=== PATIENT | female | born 1995 | race Caucasian/White ===

== ENCOUNTER 2022-01-18 16:43 | Inpatient (IN) | payer OTHER, SELFPAY ==
[2022-01-18 16:48] VITALS: BP 121/85; PULSE 75; RESP 20; TEMP 35.8; O2SAT 98; BMI 31.8
--- NOTE | 2022-01-18 17:08 | ED.PSYCH ---
HPI - Psych General Chief Complaint: Psychiatric Symptoms Stated Complaint: multiple complaints, OD? Time Seen by Provider: 01/18/22 16:54 Source: patient Mode of arrival: ambulatory Limitations: no limitations History of Present Illness HPI Narrative: 26-year-old female history of anxiety and depression presenting to the emergency department for crisis evaluation. Presents with her aunt who she is close, patient reports she is here because she has been hallucinating and her boyfriend is concerned. She also reports that she has not been taking all her medications as prescribed. According to aunt patient has been destructive in her home, throwing things, making a mess. Patient tells me that she is ?relapsing and is starting to see and hear things again, she tells me she is having command auditory hallucinations and she is seeing figures however unable to tell me exactly what she is seeing. She tells me it feels ?weird ?. She tells me she just does not feel right. Upon history taking patient speaking rapidly, do railing from conversation, very euphoric. Denies SI, HI. Denies tactile hallucinations. Denies medical complaints. Tells me she has had psychiatric admissions in the past however unable to tell me why. Related Data Home Medications Medication Instructions Recorded Confirmed bupropion HCl 75 mg tablet 75 mg PO BID 01/18/22 01/18/22 hydroxyzine pamoate 50 mg capsule 50 mg PO TID PRN Anxiety 01/18/22 01/18/22 methimazole 1.5 tab PO DAILY 01/18/22 01/18/22 naltrexone 50 mg tablet 50 mg PO DAILY 01/18/22 01/18/22 sertraline 50 mg tablet 50 mg PO DAILY 01/18/22 01/18/22 topiramate 50 mg tablet 50 mg PO BID 01/18/22 01/18/22 Allergies Allergy/AdvReac Type Severity Reaction Status Date / Time No Known Allergies Allergy Unverified 11/13/19 16:17 Review of Systems Review of Systems: Constitutional : No Weight loss, No Fever, No Chills, No Fatigue, No Malaise ENT/Mouth : No sore throat, No Rhinorrhea Eyes: No Eye Pain, No Swelling, No Redness Cardiovascular : No Chest Pain, No SOB, No Dyspnea on Exertion, No Orthopnea, No Edema, No Palpitations Respiratory : No Cough, No Sputum, No Wheezing Gastrointestinal : No Nausea, No Vomiting, No Diarrhea, No Constipation, No abdominal Pain, No Hematochezia, No Melena Genitourinary : No Dysuria, No Urinary Frequency, No Hematuria, Musculoskeletal : No joint pain, No Myalgias, No Joint Swelling Skin : No Skin Lesions, No rash Neuro : No Weakness, No Numbness, No Dizziness, No Headache Psych : + Anxiety/Panic, + Depression, No SI/HI All other systems reviewed and are negative Yes all other systems are reviewed and are negative [facility] Past Medical History Attestation statement: The following information was validated with the patient. Source: old records reviewed and nursing notes reviewed Social History Social History Advance Directives: No Physical Exam Vital Signs: Vital Signs: Last Vital Signs Temp 96.5 F L 01/18/22 16:48 Pulse 75 01/18/22 16:48 Resp 20 01/18/22 16:48 BP 121/85 01/18/22 16:48 Pulse Ox 98 01/18/22 16:48 O2 Del Method 01/18/22 16:48 BMI result Body Mass Index 31.8 Stable vitals Appearance: Alert.? Oriented X3.? No acute distress.? Head: Normocephalic, atraumatic, no step-offs or deformities Eyes: Pupils equal, round and reactive to light.? CVS: Normal heart rate and rhythm.? Pulses normal.? Respiratory: No respiratory distress.? Breath sounds normal.? Abdomen: Soft and nontender.? Skin: Skin warm and dry.? Normal skin color.? Normal skin turgor.? Extremities: No lower extremity edema.? No calf ttp. 5/5 strength to bilateral upper and lower extremities Neuro: Oriented X 3.? No motor deficit.? No sensory deficit. CN 2-12 intact Course Reevaluation(s) Reevaluation #1: CBC with leukocytosis likely reactive unlikely from infection. Chemistry with no acute electrolyte abnormalities requiring intervention. Toxicology negative. Salicylates, acetaminophen and ethanol negative. Urine clean without infection. COVID negative. Patient extremely manic at this time will give low-dose Zyprexa by mouth. At this time patient will be placed in physician observation to allow more time to be evaluated by the behavioral health team. At time observation was started patient common cooperative no acute distress will continue to monitor. Stable vitals. Time: 18:54 MDM - Psych MDM Narrative Medical decision making narrative: 1700 26-year-old female presents with want requesting crisis evaluation, reporting visual and auditory command hallucinations, non med compliance. Euphoric, rapidly speaking, derailing from conversation upon exam. Physical examination benign. Plan medical clearance and evaluation by the behavioral health team. Due to patient's irrational behavior, unorganized thoughts, dangerous behavior at home patient is harm to self and others will place on Section 12 Medical Records Attestation: I reviewed the patient's medical records. Lab Data Attestation: I reviewed the patient's lab results. Result diagrams: 01/18/22 17:50 01/18/22 17:50 Labs: Lab Results 01/18/22 01/18/22 01/18/22 Range/Units 17:45 17:46 17:46 WBC (4.8-10.8) X10*3/uL RBC (4.20-5.50) X10*6/uL Hgb (12.0-16.0) g/dl Hct (37.0-47.0) % MCV (80.0-98.0) fL MCH (27.0-33.0) pg MCHC (31.0-35.0) g/dl RDW (11.0-16.0) % Plt Count (160-400) X10*3/uL MPV (9.4-12.3) fL Immature Gran % (Auto) (0.0-0.4) % Neut % (Auto) (45-73) % Lymph % (Auto) (20-40) % [place] % (Auto) (2-11) % Eos % (Auto) (0-4) % Baso % (Auto) (0-2) % Lymph # (Auto) (1.2-4.9) X10*3/uL [place] # (Auto) (0.1-1.2) X10*3/uL Eos # (Auto) (0.0-0.4) X10*3/uL Baso # (Auto) (0.0-0.2) X10*3/uL Abs Immat Gran (auto) (0.00-0.03) X10*3/uL Absolute Neuts (auto) (2.0-8.3) x10*3/uL Absolute Nucleated RBC (0.0-0.012) X10*3/uL Nucleated RBC % (auto) (0.0-0.2) /100WBC Sodium (135-145) mmol/L Potassium (3.3-5.1) mmol/L Chloride (96-108) mmol/L Carbon Dioxide (22-29) mmol/L Anion Gap (12-20) BUN (9-16) mg/dL Creatinine (0.5-1.4) mg/dL Estim Creat Clear Calc Estimated GFR Random Glucose (60-115) mg/dL Calcium (8.4-10.2) mg/dL Magnesium (1.6-2.6) mg/dL Total Bilirubin (0.0-1.0) mg/dL AST (5-31) U/L ALT (0-31) U/L Alkaline Phosphatase (39-117) U/L Total Protein (6.5-8.0) g/dL Albumin (3.5-5.0) g/dL Urine Color Yellow Urine Appearance Cloudy Urine pH 7.5 (5.0-9.0) Ur Specific [place] 1.015 (1.005-1.025) Urine Protein Negative (Neg-Trace) mg/dL Urine Glucose (UA) Negative (Negative) mg/dL Urine Ketones Negative (Negative) mg/dL Urine Blood Negative (Negative) Urine Nitrite Negative (Negative) Ur Leukocyte Esterase Trace H (Negative) Urine RBC 0-2 (0-2) /HPF Urine WBC 0-5 (0-5) /HPF Ur Squamous Epith Cells 3-5 (0-2) /HPF Urine Bacteria Trace (None Seen) Hyaline Casts 0-2 (0-2) /LPF Salicylates (15-30) mg/dL Urine Opiates Screen Not Detected (Not Detect) Urine Fentanyl Screen Not Detected (Not Detect) Acetaminophen (<30) mcg/mL Ur Barbiturates Screen Not Detected (Not Detect) Ur Phencyclidine Scrn Not Detected (Not Detect) Ur Amphetamines Screen Not Detected (Not Detect) U Benzodiazepines Scrn Not Detected (Not Detect) Urine Cocaine Screen Not Detected (Not Detect) U Marijuana (THC) Screen Not Detected (Not Detect) Ethyl Alcohol mg/dL COVID-19 (NASIR) Negative (Negative) COVID-19 Clin Com See Note 01/18/22 01/18/22 01/18/22 Range/Units 17:50 17:50 17:50 WBC 11.3 H (4.8-10.8) X10*3/uL RBC 5.14 (4.20-5.50) X10*6/uL Hgb 14.2 (12.0-16.0) g/dl Hct 42.8 (37.0-47.0) % MCV 83.3 (80.0-98.0) fL MCH 27.6 (27.0-33.0) pg MCHC 33.2 (31.0-35.0) g/dl RDW 13.7 (11.0-16.0) % Plt Count 347 (160-400) X10*3/uL MPV 10.4 (9.4-12.3) fL Immature Gran % (Auto) 0.9 H (0.0-0.4) % Neut % (Auto) 69.0 (45-73) % Lymph % (Auto) 24.0 (20-40) % [place] % (Auto) 5.6 (2-11) % Eos % (Auto) 0.1 (0-4) % Baso % (Auto) 0.4 (0-2) % Lymph # (Auto) 2.7 (1.2-4.9) X10*3/uL [place] # (Auto) 0.6 (0.1-1.2) X10*3/uL Eos # (Auto) 0.0 (0.0-0.4) X10*3/uL Baso # (Auto) 0.1 (0.0-0.2) X10*3/uL Abs Immat Gran (auto) 0.10 H (0.00-0.03) X10*3/uL Absolute Neuts (auto) 7.8 (2.0-8.3) x10*3/uL Absolute Nucleated RBC 0.000 (0.0-0.012) X10*3/uL Nucleated RBC % (auto) 0.0 (0.0-0.2) /100WBC Sodium 138 (135-145) mmol/L Potassium 3.8 (3.3-5.1) mmol/L Chloride 108 (96-108) mmol/L Carbon Dioxide 20 L (22-29) mmol/L Anion Gap 14 (12-20) BUN 10 (9-16) mg/dL Creatinine 0.75 (0.5-1.4) mg/dL Estim Creat Clear Calc 96.2 Estimated GFR > 60 Random Glucose 72 (60-115) mg/dL Calcium 9.7 (8.4-10.2) mg/dL Magnesium 2.1 (1.6-2.6) mg/dL Total Bilirubin 0.3 (0.0-1.0) mg/dL AST 16 (5-31) U/L ALT 13 (0-31) U/L Alkaline Phosphatase 115 (39-117) U/L Total Protein 8.4 H (6.5-8.0) g/dL Albumin 4.6 (3.5-5.0) g/dL Urine Color Urine Appearance Urine pH (5.0-9.0) Ur Specific [place] (1.005-1.025) Urine Protein (Neg-Trace) mg/dL Urine Glucose (UA) (Negative) mg/dL Urine Ketones (Negative) mg/dL Urine Blood (Negative) Urine Nitrite (Negative) Ur Leukocyte Esterase (Negative) Urine RBC (0-2) /HPF Urine WBC (0-5) /HPF Ur Squamous Epith Cells (0-2) /HPF Urine Bacteria (None Seen) Hyaline Casts (0-2) /LPF Salicylates < 5.0 L (15-30) mg/dL Urine Opiates Screen (Not Detect) Urine Fentanyl Screen (Not Detect) Acetaminophen < 1 (<30) mcg/mL Ur Barbiturates Screen (Not Detect) Ur Phencyclidine Scrn (Not Detect) Ur Amphetamines Screen (Not Detect) U Benzodiazepines Scrn (Not Detect) Urine Cocaine Screen (Not Detect) U Marijuana (THC) Screen (Not Detect) Ethyl Alcohol < 10 mg/dL COVID-19 (NASIR) (Negative) COVID-19 Clin Com Critical Care Time Critical Care Time Critical Care Time: No Discharge Plan Discharge Clinical Impression: Acute psychosis Patient Disposition: Still a Patient Prescriptions: No Action bupropion HCl [Wellbutrin] 75 mg Tablet 75 mg PO BID naltrexone 50 mg Tablet 50 mg PO DAILY hydroxyzine pamoate 50 mg Capsule 50 mg PO TID PRN (Reason: Anxiety) sertraline 50 mg Tablet 50 mg PO DAILY topiramate 50 mg Tablet 50 mg PO BID methimazole 5 mg 1.5 tab PO DAILY
[2022-01-18 18:00] LABS: MANUAL DIFF FLAG NO
[2022-01-18 18:03] LABS: Appearance Urine Cloudy; Color Urine Yellow; Glucose Urine UA Negative (Negative); Leukocyte Esterase Urine Trace (Negative); Nitrite Urine Negative (Negative); PH 7.5 (5.0-9.0); Specific Gravity - Urine 1.015 (1.005-1.025); UMIC TRIGGER UACC YES; Urine Blood Negative (Negative); Urine Ketones Negative (Negative); Urine Protein Negative (Neg-Trace)
[2022-01-18 18:05] LABS: Bacteria Urine Trace (None Seen); Hyaline Casts Urine 0-2 /LPF (0-2); RBC Urine 0-2 /HPF (0-2); WBC Urine 0-5 /HPF (0-5)
[2022-01-18 18:08] LABS: Basophils Absolute Auto 0.1 X10*3/uL (0.0-0.2); Basophils Percent Auto 0.4 % (0-2); Eosinophils Percent Auto 0.1 % (0-4); Hematocrit 42.8 % (37.0-47.0); Hemoglobin 14.2 g/dl (12.0-16.0); Imm Gran Pct Auto 0.9 % (0.0-0.4); Lymphocytes Absolute Auto 2.7 X10*3/uL (1.2-4.9); Mean Corpuscular HGB Conc 33.2 g/dl (31.0-35.0); Mean Corpuscular Hemoglobin 27.6 pg (27.0-33.0); Mean Corpuscular Volume 83.3 fL (80.0-98.0); Mean Platelet Volume 10.4 fL (9.4-12.3); Monocytes Absolute Auto 0.6 X10*3/uL (0.1-1.2); Monocytes Percent Auto 5.6 % (2-11); Neutrophils Absolute Auto 7.8 x10*3/uL (2.0-8.3); Platelet Count 347 X10*3/uL (160-400); Red Blood Count 5.14 X10*6/uL (4.20-5.50); Red Cell Distribution Width 13.7 % (11.0-16.0); White Blood Count 11.3 X10*3/uL (4.8-10.8)
[2022-01-18 18:13] LABS: Amphetamine Screen Urine Not Detected (Not Detect); Barbiturates, Urine Not Detected (Not Detect); Benzodiazepines Screen Urine Not Detected (Not Detect); Cannabinoid Screen Urine Not Detected (Not Detect); Cocaine Screen Urine Not Detected (Not Detect); Fentanyl, urine Not Detected (Not Detect); Opiate Screen Urine Not Detected (Not Detect); Phencyclidine Screen Urine Not Detected (Not Detect)
[2022-01-18 18:14] LABS: COVID-19 Test Negative (Negative); IDNOW Serial# 9DB6401D
[2022-01-18 18:19] LABS: Acetaminophen LAB < 1 mcg/mL (<30); Salicylate < 5.0 mg/dL (15-30)
[2022-01-18 18:21] LABS: Alanine Aminotransferase 13 U/L (0-31); Albumin Level 4.6 g/dL (3.5-5.0); Alkaline Phosphatase 115 U/L (39-117); Anion Gap 14 (12-20); Aspartate Amino Transferase 16 U/L (5-31); Bilirubin Total 0.3 mg/dL (0.0-1.0); Blood Urea Nitrogen 10 mg/dL (9-16); Calcium 9.7 mg/dL (8.4-10.2); Carbon Dioxide 20 mmol/L (22-29); Chloride 108 mmol/L (96-108); Creatinine Clr Calc Pharmacy 96.2; Estimated Glomerular Filt Rate > 60; Ethanol < 10 mg/dL; Glucose Random 72 mg/dL (60-115); Magnesium 2.1 mg/dL (1.6-2.6); Potassium 3.8 mmol/L (3.3-5.1); Sodium 138 mmol/L (135-145); Total Protein 8.4 g/dL (6.5-8.0)
[2022-01-18] MEDS: OLANZapine 5 MG TABLET PO (18:55)
[2022-01-18] MEDS: Topiramate 25 MG TABLET 50 MG PO (20:10)
[2022-01-18] MEDS: LORazepam 1 MG TABLET PO (20:10)
[2022-01-18] MEDS: buPROPion HCL 75 MG TABLET PO (20:31)
[2022-01-19 01:16] VITALS: BP 117/77; PULSE 81; RESP 16; TEMP 35.9; O2SAT 100
--- NOTE | 2022-01-19 02:42 | PC.NURSE ---
Patient is a 26 year old bilingual cisgender female, arrived on the unit via wheelchair @approx 0100 [place] [facility]. Conditional Voluntary signed. Patient presented to the ER secondary to being evaluated by [facility] in community for increased paranoia and delusions, exhibiting signs of being manic; noncompliant with medications. Patient sleepy upon arrival to the unit, unable to fully participate in Admission Assessment d/t somnolence; remained cooperative, rapid rambling speech with verbal responses, anxious and paranoid affect, denies SI/HI. COVID negative; Tox Screen Negative. Nonsmoker. Patient refusing flu vaccine. Safety checks in place as ordered. Patient asleep in bed at this time.
[2022-01-19 08:30] VITALS: BP 115/72; PULSE 83; TEMP 36.2
[2022-01-19 08:53] LABS: Estimated Average Glucose 100 mg/dL; Hemoglobin A1c % 5.1 %
[2022-01-19] MEDS: Naltrexone HCl 50 MG TABLET PO (08:54)
[2022-01-19] MEDS: Topiramate 25 MG TABLET 50 MG PO ×2 (08:54→20:20)
[2022-01-19 09:23] LABS: Alanine Aminotransferase 15 U/L (0-31); Alkaline Phosphatase 104 U/L (39-117); Anion Gap 13 (12-20); Aspartate Amino Transferase 13 U/L (5-31); Bilirubin Total 0.4 mg/dL (0.0-1.0); Blood Urea Nitrogen 12 mg/dL (9-16); Calcium 9.2 mg/dL (8.4-10.2); Carbon Dioxide 20 mmol/L (22-29); Chloride 111 mmol/L (96-108); Cholesterol 134 mg/dL; Estimated Glomerular Filt Rate > 60; Free T4 (Free Thyroxine) 0.89 ng/dL (0.71-1.85); Glucose Fasting 89 mg/dL (60-99); HDL Cholesterol 39 mg/dL; LDL Cholesterol Calculated 69 mg/dl; Potassium 4.4 mmol/L (3.3-5.1); Sodium 140 mmol/L (135-145); Total Protein 7.5 g/dL (6.5-8.0); Triglycerides 131 mg/dL
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
[2022-01-19] MEDS: methIMAzole 5 MG TABLET 7.5 MG PO (13:00)
[2022-01-19 18:00] VITALS: BP 115/66; PULSE 97; TEMP 36.5; O2SAT 99
--- NOTE | 2022-01-19 21:18 | PC.NURSE ---
Patient signed a 3 Day on 01/19, witnessed and filed in chart. [employer] Provider alerted via [employer]. SW, UC and CC alerted via email. 3 Day up Wednesday 01/24.
--- NOTE | 2022-01-20 04:58 | PC.NURSE ---
Pt. awake all night. She is hyperverbal, pressured and disorganized. Her speech is pressured, regressed with flight of ideas and she frequently refers to herself in the third person.
[2022-01-20] MEDS: methIMAzole 5 MG TABLET 7.5 MG PO (09:29)
[2022-01-20] MEDS: Naltrexone HCl 50 MG TABLET PO (09:29)
[2022-01-20] MEDS: Topiramate 25 MG TABLET 50 MG PO ×2 (09:29→20:14)
--- NOTE | 2022-01-20 14:34 | HO.PSYCHPN ---
Subjective Subjective Date of Service: 01/20/22 Reason For Visit: Rivka Interim History: Hypomanic, disorganized, long discussion about bunnies, the bunny tattoo she has on her arm, the [employer] and missing Easter. TDN filed. Believes current sx are from contrave. Discussed hx of thyroid storm and MSE changes. Pt has rash on forearms, legs, hands for ~2 weeks, describes this as excema . Agreed to hydrocortisone cream. Discussed elevated TSH 6.8-agreed to increase Tapazole from 7.5 mg to 10 mg. Message left for [facility] endocrine MD Dr. Coker [phone] (closed today) to discuss. Discussed rivka, education provided. Will increase Olanzapine to 15 mg hs and add Depakote ER 500 mg because I cannot sleep . Pt reviewed all of her work experience and hours she has worked-relating this to the bunnies and Contrave. Medication Compliance: Yes Side effects from medications: No Attending Groups: Intermittent Review of Systems Acute medical concerns: No Medical Review of Systems: unchanged Mental Status Exam Mental Status Exam Patient Appearance: Fatigued Patient Orientation: Person and Place Level of Consciousness: Alert Patient Behavior: Talkative and Good Eye Contact Mood Description: Cheerful Affect Description: Cheerful Patient Cognition Impaired: Yes Ability to Follow Directions: Fair Speech Pattern: Spontaneous Speech, Rambling, Excessive and Pressured Memory Description: Remote Impaired Hallucinations: None (denies) Delusions: Grandiose and Present Perceptual Disturbances: Derealization Thought Process: Racing Thought Content: positive for Racing Abnormal Motor Activity Signs and Symptoms: Restlessness (wanting discharge today) Judgement: Poor Diagnostics Vital Signs (24Hr): Vital Signs - 24 hr 01/19/22 18:00 Temperature 97.7 F Pulse Rate 97 Blood Pressure 115/66 Pulse Oximetry 99 BMI result Body Mass Index 31.8 Labs Results: 01/18/22 17:50 01/19/22 07:30 Labs: Laboratory Results - last 48 hr 01/18/22 01/18/22 01/18/22 17:45 17:46 17:46 WBC RBC Hgb Hct MCV MCH MCHC RDW Plt Count MPV Immature Gran % (Auto) Neut % (Auto) Lymph % (Auto) Hutchinson % (Auto) Eos % (Auto) Baso % (Auto) Lymph # (Auto) [place] # (Auto) Eos # (Auto) Baso # (Auto) Abs Immat Gran (auto) Absolute Neuts (auto) Absolute Nucleated RBC Nucleated RBC % (auto) Sodium Potassium Chloride Carbon Dioxide Anion Gap BUN Creatinine Estim Creat Clear Calc Estimated GFR Random Glucose Fasting Glucose Estimat Average Glucose Hemoglobin A1c % Calcium Magnesium Total Bilirubin AST ALT Alkaline Phosphatase Total Protein Albumin Triglycerides Cholesterol LDL Cholesterol, Calc HDL Cholesterol TSH Free T4 Urine Color Yellow Urine Appearance Cloudy Urine pH 7.5 Ur Specific Gorman 1.015 Urine Protein Negative Urine Glucose (UA) Negative Urine Ketones Negative Urine Blood Negative Urine Nitrite Negative Ur Leukocyte Esterase Trace H Urine RBC 0-2 Urine WBC 0-5 Ur Squamous Epith Cells 3-5 Urine Bacteria Trace Hyaline Casts 0-2 Salicylates Urine Opiates Screen Not Detected Urine Fentanyl Screen Not Detected Acetaminophen Ur Barbiturates Screen Not Detected Ur Phencyclidine Scrn Not Detected Ur Amphetamines Screen Not Detected U Benzodiazepines Scrn Not Detected Urine Cocaine Screen Not Detected U Marijuana (THC) Screen Not Detected Ethyl Alcohol COVID-19 (NASIR) Negative COVID-19 Clin Com See Note 01/18/22 01/18/22 01/18/22 17:50 17:50 17:50 WBC 11.3 H RBC 5.14 Hgb 14.2 Hct 42.8 MCV 83.3 MCH 27.6 MCHC 33.2 RDW 13.7 Plt Count 347 MPV 10.4 Immature Gran % (Auto) 0.9 H Neut % (Auto) 69.0 Lymph % (Auto) 24.0 Hutchinson % (Auto) 5.6 Eos % (Auto) 0.1 Baso % (Auto) 0.4 Lymph # (Auto) 2.7 Hutchinson # (Auto) 0.6 Eos # (Auto) 0.0 Baso # (Auto) 0.1 Abs Immat Gran (auto) 0.10 H Absolute Neuts (auto) 7.8 Absolute Nucleated RBC 0.000 Nucleated RBC % (auto) 0.0 Sodium 138 Potassium 3.8 Chloride 108 Carbon Dioxide 20 L Anion Gap 14 BUN 10 Creatinine 0.75 Estim Creat Clear Calc 96.2 Estimated GFR > 60 Random Glucose 72 Fasting Glucose Estimat Average Glucose Hemoglobin A1c % Calcium 9.7 Magnesium 2.1 Total Bilirubin 0.3 AST 16 ALT 13 Alkaline Phosphatase 115 Total Protein 8.4 H Albumin 4.6 Triglycerides Cholesterol LDL Cholesterol, Calc HDL Cholesterol TSH 6.80 H Free T4 Urine Color Urine Appearance Urine pH Ur Specific Gorman Urine Protein Urine Glucose (UA) Urine Ketones Urine Blood Urine Nitrite Ur Leukocyte Esterase Urine RBC Urine WBC Ur Squamous Epith Cells Urine Bacteria Hyaline Casts Salicylates < 5.0 L Urine Opiates Screen Urine Fentanyl Screen Acetaminophen < 1 Ur Barbiturates Screen Ur Phencyclidine Scrn Ur Amphetamines Screen U Benzodiazepines Scrn Urine Cocaine Screen U Marijuana (THC) Screen Ethyl Alcohol < 10 COVID-19 ([facility]IR) COVID-19 [facility] Com 01/19/22 01/19/22 07:30 07:30 WBC RBC Hgb Hct MCV MCH MCHC RDW Plt Count MPV Immature Gran % (Auto) Neut % (Auto) Lymph % (Auto) Hutchinson % (Auto) Eos % (Auto) Baso % (Auto) Lymph # (Auto) Hutchinson # (Auto) Eos # (Auto) Baso # (Auto) Abs Immat Gran (auto) Absolute Neuts (auto) Absolute Nucleated RBC Nucleated RBC % (auto) Sodium 140 Potassium 4.4 Chloride 111 H Carbon Dioxide 20 L Anion Gap 13 BUN 12 Creatinine 0.87 Estim Creat Clear Calc 83.0 Estimated GFR > 60 Random Glucose Fasting Glucose 89 Estimat Average Glucose 100 Hemoglobin A1c % 5.1 Calcium 9.2 Magnesium Total Bilirubin 0.4 AST 13 ALT 15 Alkaline Phosphatase 104 Total Protein 7.5 Albumin 4.0 Triglycerides 131 Cholesterol 134 LDL Cholesterol, Calc 69 HDL Cholesterol 39 TSH Free T4 0.89 Urine Color Urine Appearance Urine pH Ur Specific Gorman Urine Protein Urine Glucose (UA) Urine Ketones Urine Blood Urine Nitrite Ur Leukocyte Esterase Urine RBC Urine WBC Ur Squamous Epith Cells Urine Bacteria Hyaline Casts Salicylates Urine Opiates Screen Urine Fentanyl Screen Acetaminophen Ur Barbiturates Screen Ur Phencyclidine Scrn Ur Amphetamines Screen U Benzodiazepines Scrn Urine Cocaine Screen U Marijuana (THC) Screen Ethyl Alcohol COVID-19 (NASIR) COVID-19 Clin Com Medications Medications Current Medications Acetaminophen (Acetaminophen 325 Mg Tablet) 650 mg PO Q6H PRN PRN Reason: Headache/Pain Mild Scale (1-3) Al Hydroxide/Mg Hydroxide (Magnesium Hydrox/Alum Hydrox 30 Ml Oral.Susp) 30 ml PO Q6H PRN PRN Reason: Heartburn/Nausea Divalproex Sodium (Divalproex Sodium Er 500 Mg Tab.Er.24h) 500 mg PO BEDTIME [facility]MIN Hydroxyzine HCl (Hydroxyzine Hcl 50 Mg Tablet) 50 mg PO TID PRN PRN Reason: Anxiety Lorazepam (Lorazepam 1 Mg Tablet) 2 mg PO Q4H PRN PRN Reason: agitation Magnesium Hydroxide (Milk Of Magnesia 30 Ml Oral.Susp) 30 ml PO DAILY PRN PRN Reason: Constipation Methimazole (Methimazole 10 Mg Tablet) 10 mg PO DAILY [facility] Naltrexone HCl (Naltrexone Hcl 50 Mg Tablet) 50 mg PO DAILY [facility] Last Admin: 01/20/22 09:29 Dose: 50 mg Nicotine Polacrilex (Nicotine Polacrilex 2 Mg Gum) 4 mg BUCCAL Q2H PRN PRN Reason: Nicotine Cravings Olanzapine (Olanzapine 5 Mg Tablet) 5 mg PO Q4H PRN PRN Reason: agitation Olanzapine (Olanzapine 7.5 Mg Tablet) 15 mg PO BEDTIME [facility] Topiramate (Topiramate 25 Mg Tablet) 50 mg PO BID [facility] Last Admin: 01/20/22 09:29 Dose: 50 mg Allergies Allergies Allergy/AdvReac Type Severity Reaction Status Date / Time aloe Allergy Unknown Unknown Verified 01/19/22 01:22 Assessment & Plan Assessment & Plan (1) Acute psychosis: Status: Acute Code(s): F23 - Brief psychotic disorder (2) Bipolar 1 disorder: Status: Acute Code(s): F31.9 - Bipolar disorder, unspecified Plan The patient is a young descent female with a prior admission to the hospital for psychosis admitted for exacerbation of rivka and psychotic symptoms in the context of noncompliance and probably changes in her medication. Plan 1. Gather collateral information. 2. Admit to M5. 3. Observation 15 minutes check. 4. Hold Zoloft and Wellbutrin and other antidepressants since the patient is grossly manic at this moment. 5. Continue with antipsychotics and p.r.n. medications. 6. Continue with medical assessment. 01/20/22 Increase Olanzapine to 15 mg HS Depakote ER 500 mg HS Increase Tapazole from 7.5 mg daily to 10 mg daily. Message left for endocrine Dr. Coker [facility] to discuss Pt has a rash-forearms, legs, hands-hydrocortisone ordered- monitor. I spent minutes with the patient and/or on the patient floor today, greater than?50% of which was spent counseling/coordinating care. Patient educated on: medication risk/benefits Informed Consent: further education needed Reason for contiued inpatient stay Substantial Risk for: rapid decompensation
[2022-01-20 19:00] VITALS: BP 121/76; PULSE 91; RESP 16; TEMP 36.4; O2SAT 97
[2022-01-20] MEDS: Divalproex Sodium ER 500 MG TAB.ER.24H PO (20:14)
[2022-01-20] MEDS: OLANZapine 7.5 MG TABLET 15 MG PO (20:14)
[2022-01-20] MEDS: diphenhydrAMINE HCL 25 MG CAPSULE 50 MG PO (20:14)
[2022-01-20] MEDS: Benzocaine 20 % Oral Gel 9 GM TUBE 1 APPL MUCOUS MEM (20:19)
[2022-01-20] MEDS: Hydrocortisone 1 % Ointment 28.35 GM TUBE 1 APPL TOPICAL (20:19)
[2022-01-21 06:00] VITALS: BP 115/87; PULSE 122; RESP 14; TEMP 36.6; O2SAT 99
[2022-01-21] MEDS: Topiramate 25 MG TABLET 50 MG PO ×2 (09:07→19:56)
[2022-01-21] MEDS: Naltrexone HCl 50 MG TABLET PO (09:07)
--- NOTE | 2022-01-21 09:45 | P.PNPSI_ITS ---
Subjective Subjective Date of Service: 01/21/22 Reason For Visit: Rivka Interim History: Patient seen and discussed. Patient continues to be hypomanic,hyperactive, intrusive (knocking on patients' doors to announce lunch) but is pleasant and not irritable. She is pressured and talking about being a good mother and being happy because her child is visiting today. She was found in another patient's room kneeling and praying. She is pressured with flight of ideas. Patient compliant with medications. Review of Systems Review of Systems Constitutional : No Weight loss, No Fever, No Chills, No Fatigue, No Malaise ENT/Mouth : No sore throat, No Rhinorrhea Eyes: No Eye Pain, No Swelling, No Redness Cardiovascular : No Chest Pain, No SOB, No Dyspnea on Exertion, No Orthopnea, No Edema, No Palpitations Respiratory : No Cough, No Sputum, No Wheezing Gastrointestinal : No Nausea, No Vomiting, No Diarrhea, No Constipation, No abdominal Pain, No Hematochezia, No Melena Genitourinary : No Dysuria, No Urinary Frequency, No Hematuria, Musculoskeletal : No joint pain, No Myalgias, No Joint Swelling Skin : No Skin Lesions, No rash Neuro : No Weakness, No Numbness, No Dizziness, No Headache Psych : + Anxiety/Panic, + Depression, No SI/HI All other systems reviewed and are negative Yes all other systems are reviewed and are negative Mental Status Exam Mental Status Exam Patient Appearance: Appropriate Patient Orientation: Person, Place, Time and Situation Level of Consciousness: Alert Patient Behavior: Talkative, Restless, Invasion - Personal Space, Distractible, Good Eye Contact and Pacing Mood Description: Cheerful, Labile and Elated Affect Description: Cheerful, Labile and Elated Patient Cognition Impaired: Yes Ability to Follow Directions: Fair Speech Pattern: Spontaneous Speech, Rambling, Rapid, Excessive and Pressured Memory Description: Remote Impaired Hallucinations: None Thought Process: Racing Thought Content: positive for Flight of Ideas, positive for Racing, positive for Circumstantial and positive for Tangential Judgement: Fair Diagnostics Vital Signs (24Hr): Vital Signs - 24 hr 01/21/22 06:00 01/21/22 18:00 Temperature 97.8 F 96.7 F L Pulse Rate 122 H 100 Respiratory Rate 14 Blood Pressure 115/87 127/97 H Pulse Oximetry 99 Oxygen Delivery Method Room Air BMI result Body Mass Index 31.8 Labs Results: 01/18/22 17:50 01/19/22 07:30 Medications Medications Current Medications Acetaminophen (Acetaminophen 325 Mg Tablet) 650 mg PO Q6H PRN PRN Reason: Headache/Pain Mild Scale (1-3) Al Hydroxide/Mg Hydroxide (Magnesium Hydrox/Alum Hydrox 30 Ml Oral.Susp) 30 ml PO Q6H PRN PRN Reason: Heartburn/Nausea Benzocaine (Benzocaine 20 % Oral Gel 9 Gm Tube) 1 appl MUCOUS MEM QID PRN; Protocol PRN Reason: tooth ache Last Admin: 01/21/22 19:57 Dose: 1 appl Diphenhydramine HCl (Diphenhydramine Hcl 25 Mg Capsule) 50 mg PO Q6H PRN PRN Reason: itchiness Last Admin: 01/20/22 20:14 Dose: 50 mg Divalproex Sodium (Divalproex Sodium Er 500 Mg Tab.Er.24h) 500 mg PO BEDTIME [facility]MIN Last Admin: 01/21/22 19:56 Dose: 500 mg Hydrocortisone (Hydrocortisone 1 % Ointment 28.35 Gm Tube) 1 appl TOPICAL BID FERMIN; Protocol Last Admin: 01/21/22 19:57 Dose: 1 appl Hydroxyzine HCl (Hydroxyzine Hcl 50 Mg Tablet) 50 mg PO TID PRN PRN Reason: Anxiety Lorazepam (Lorazepam 1 Mg Tablet) 2 mg PO Q4H PRN PRN Reason: agitation Magnesium Hydroxide (Milk Of Magnesia 30 Ml Oral.Susp) 30 ml PO DAILY PRN PRN Reason: Constipation Methimazole (Methimazole 10 Mg Tablet) 10 mg PO DAILY [facility] Last Admin: 01/21/22 10:45 Dose: 10 mg Naltrexone HCl (Naltrexone Hcl 50 Mg Tablet) 50 mg PO DAILY [facility] Last Admin: 01/21/22 09:07 Dose: 50 mg Nicotine Polacrilex (Nicotine Polacrilex 2 Mg Gum) 4 mg BUCCAL Q2H PRN PRN Reason: Nicotine Cravings Olanzapine (Olanzapine 5 Mg Tablet) 5 mg PO Q4H PRN PRN Reason: agitation Olanzapine (Olanzapine 7.5 Mg Tablet) 15 mg PO BEDTIME [facility] Last Admin: 01/21/22 19:56 Dose: 15 mg Topiramate (Topiramate 25 Mg Tablet) 50 mg PO BID [facility] Last Admin: 01/21/22 19:56 Dose: 50 mg Allergies Allergies Allergy/AdvReac Type Severity Reaction Status Date / Time aloe Allergy Unknown Unknown Verified 01/19/22 01:22 Assessment & Plan Assessment & Plan (1) Acute psychosis: Status: Acute Code(s): F23 - Brief psychotic disorder (2) Bipolar 1 disorder: Status: Acute Code(s): F31.9 - Bipolar disorder, unspecified Plan The patient is a young descent female with a prior admission to the hospital for psychosis admitted for exacerbation of rivka and psychotic symptoms in the context of noncompliance and probably changes in her medication. Plan 1. Gather collateral information. 2. Admit to M5. 3. Observation 15 minutes check. 4. Hold Zoloft and Wellbutrin and other antidepressants since the patient is grossly manic at this moment. 5. Continue with antipsychotics and p.r.n. medications. 6. Continue with medical assessment. 01/20/22 Increase Olanzapine to 15 mg HS Depakote ER 500 mg HS Increase Tapazole from 7.5 mg daily to 10 mg daily. Message left for endocrine Dr. Coker [facility] to discuss Pt has a rash-forearms, legs, hands-hydrocortisone ordered- monitor. 01/21: Continue current plan. Medications recently adjusted. I spent minutes with the patient and/or on the patient floor today, greater than?50% of which was spent counseling/coordinating care. Reason for contiued inpatient stay Substantial Risk for: inability to function and rapid decompensation
[2022-01-21] MEDS: Hydrocortisone 1 % Ointment 28.35 GM TUBE 1 APPL TOPICAL ×2 (09:51→19:57)
[2022-01-21] MEDS: methIMAzole 10 MG TABLET PO (10:45)
[2022-01-21] MEDS: Benzocaine 20 % Oral Gel 9 GM TUBE 1 APPL MUCOUS MEM ×2 (10:46→19:57)
[2022-01-21 18:00] VITALS: BP 127/97; PULSE 100; TEMP 35.9
[2022-01-21] MEDS: OLANZapine 7.5 MG TABLET 15 MG PO (19:56)
[2022-01-21] MEDS: Divalproex Sodium ER 500 MG TAB.ER.24H PO (19:56)
[2022-01-22 00:07] LABS: COVID-19 Test Negative (Negative); IDNOW Serial# BCCEAD1C
[2022-01-22 06:00] VITALS: BP 120/88; PULSE 68; RESP 14; TEMP 36.5; O2SAT 100
[2022-01-22] MEDS: Topiramate 25 MG TABLET 50 MG PO ×2 (08:51→18:46)
[2022-01-22] MEDS: methIMAzole 10 MG TABLET PO (08:51)
[2022-01-22] MEDS: Naltrexone HCl 50 MG TABLET PO (08:51)
[2022-01-22] MEDS: Hydrocortisone 1 % Ointment 28.35 GM TUBE 1 APPL TOPICAL ×2 (09:21→18:46)
--- NOTE | 2022-01-22 11:50 | HO.PSYCHPN ---
Subjective Subjective Date of Service: 01/22/22 Reason For Visit: Rivka Interim History: Patient seen and discussed. Patient reports she has cold symptoms and reports she used to be on Albuterol and flonase for her allergies. She continues to be hypomanic,hyperactive and pacing but is pleasant and not irritable. She is pressured and has some FOI. Behavior has been manageable and under control. Patient compliant with medications. Review of Systems Review of Systems Constitutional : No Weight loss, No Fever, No Chills, No Fatigue, No Malaise ENT/Mouth : No sore throat, No Rhinorrhea Eyes: No Eye Pain, No Swelling, No Redness Cardiovascular : No Chest Pain, No SOB, No Dyspnea on Exertion, No Orthopnea, No Edema, No Palpitations Respiratory : No Cough, No Sputum, No Wheezing Gastrointestinal : No Nausea, No Vomiting, No Diarrhea, No Constipation, No abdominal Pain, No Hematochezia, No Melena Genitourinary : No Dysuria, No Urinary Frequency, No Hematuria, Musculoskeletal : No joint pain, No Myalgias, No Joint Swelling Skin : No Skin Lesions, No rash Neuro : No Weakness, No Numbness, No Dizziness, No Headache Psych : + Anxiety/Panic, + Depression, No SI/HI All other systems reviewed and are negative Yes all other systems are reviewed and are negative Mental Status Exam Mental Status Exam Patient Appearance: Appropriate Patient Orientation: Person, Place, Time and Situation Level of Consciousness: Alert Patient Behavior: Talkative, Restless, Invasion - Personal Space, Distractible, Good Eye Contact and Pacing Mood Description: Cheerful, Labile and Elated Affect Description: Cheerful, Labile and Elated Patient Cognition Impaired: Yes Ability to Follow Directions: Fair Speech Pattern: Spontaneous Speech, Rambling, Rapid, Excessive and Pressured Memory Description: Remote Impaired Diagnostics Vital Signs (24Hr): Vital Signs - 24 hr 01/22/22 06:00 01/22/22 18:20 Temperature 97.7 F Pulse Rate 68 91 Respiratory Rate 14 Blood Pressure 120/88 132/84 Pulse Oximetry 100 Oxygen Delivery Method Room Air BMI result Body Mass Index 31.8 Labs Results: 01/18/22 17:50 01/19/22 07:30 Labs: Laboratory Results - last 48 hr 01/21/22 23:31 COVID-19 ([facility]IR) Negative COVID-19 Clin Com See Note Medications Medications Current Medications Acetaminophen (Acetaminophen 325 Mg Tablet) 650 mg PO Q6H PRN PRN Reason: Headache/Pain Mild Scale (1-3) Al Hydroxide/Mg Hydroxide (Magnesium Hydrox/Alum Hydrox 30 Ml Oral.Susp) 30 ml PO Q6H PRN PRN Reason: Heartburn/Nausea Benzocaine (Benzocaine 20 % Oral Gel 9 Gm Tube) 1 appl MUCOUS MEM QID PRN; Protocol PRN Reason: tooth ache Last Admin: 01/21/22 19:57 Dose: 1 appl Benzocaine (Throat Lozenge, Medicated Lozenge) 1 lozenge MUCOUS MEM Q2H PRN PRN Reason: Sore Throat Diphenhydramine HCl (Diphenhydramine Hcl 25 Mg Capsule) 50 mg PO Q6H PRN PRN Reason: itchiness Last Admin: 01/20/22 20:14 Dose: 50 mg Divalproex Sodium (Divalproex Sodium Er 500 Mg Tab.Er.24h) 500 mg PO BEDTIME [facility] Last Admin: 01/22/22 18:46 Dose: 500 mg Hydrocortisone (Hydrocortisone 1 % Ointment 28.35 Gm Tube) 1 appl TOPICAL BID FERMIN; Protocol Last Admin: 01/22/22 18:46 Dose: 1 appl Hydroxyzine HCl (Hydroxyzine Hcl 50 Mg Tablet) 50 mg PO TID PRN PRN Reason: Anxiety Lorazepam (Lorazepam 1 Mg Tablet) 2 mg PO Q4H PRN PRN Reason: agitation Magnesium Hydroxide (Milk Of Magnesia 30 Ml Oral.Susp) 30 ml PO DAILY PRN PRN Reason: Constipation Methimazole (Methimazole 10 Mg Tablet) 10 mg PO DAILY [facility] Last Admin: 01/22/22 08:51 Dose: 10 mg Naltrexone HCl (Naltrexone Hcl 50 Mg Tablet) 50 mg PO DAILY [facility] Last Admin: 01/22/22 08:51 Dose: 50 mg Nicotine Polacrilex (Nicotine Polacrilex 2 Mg Gum) 4 mg BUCCAL Q2H PRN PRN Reason: Nicotine Cravings Olanzapine (Olanzapine 5 Mg Tablet) 5 mg PO Q4H PRN PRN Reason: agitation Olanzapine (Olanzapine 7.5 Mg Tablet) 15 mg PO BEDTIME [facility] Last Admin: 01/22/22 18:50 Dose: Not Given Topiramate (Topiramate 25 Mg Tablet) 50 mg PO BID [facility] Last Admin: 01/22/22 18:46 Dose: 50 mg Allergies Allergies Allergy/AdvReac Type Severity Reaction Status Date / Time aloe Allergy Unknown Unknown Verified 01/19/22 01:22 Assessment & Plan Assessment & Plan (1) Acute psychosis: Status: Acute Code(s): F23 - Brief psychotic disorder (2) Bipolar 1 disorder: Status: Acute Code(s): F31.9 - Bipolar disorder, unspecified Plan The patient is a young descent female with a prior admission to the hospital for psychosis admitted for exacerbation of rivka and psychotic symptoms in the context of noncompliance and probably changes in her medication. Plan 1. Gather collateral information. 2. Admit to M5. 3. Observation 15 minutes check. 4. Hold Zoloft and Wellbutrin and other antidepressants since the patient is grossly manic at this moment. 5. Continue with antipsychotics and p.r.n. medications. 6. Continue with medical assessment. 01/20/22 Increase Olanzapine to 15 mg HS Depakote ER 500 mg HS Increase Tapazole from 7.5 mg daily to 10 mg daily. Message left for endocrine Dr. Coker [facility] to discuss Pt has a rash-forearms, legs, hands-hydrocortisone ordered- monitor. 01/21: Continue current plan. Medications recently adjusted. : COVID test was negative. Restart albuterol and flonase. I spent minutes with the patient and/or on the patient floor today, greater than?50% of which was spent counseling/coordinating care. Reason for contiued inpatient stay Substantial Risk for: inability to function and rapid decompensation
[2022-01-22 18:20] VITALS: BP 132/84; PULSE 91
[2022-01-22] MEDS: Divalproex Sodium ER 500 MG TAB.ER.24H PO (18:46)
[2022-01-22] MEDS: Throat Lozenge, Medicated LOZENGE 1 LOZENGE MUCOUS MEM ×2 (21:13→23:58)
[2022-01-23] MEDS: methIMAzole 10 MG TABLET PO (08:41)
[2022-01-23] MEDS: Topiramate 25 MG TABLET 50 MG PO ×2 (08:42→18:53)
[2022-01-23] MEDS: Naltrexone HCl 50 MG TABLET PO (08:42)
[2022-01-23] MEDS: Hydrocortisone 1 % Ointment 28.35 GM TUBE 1 APPL TOPICAL (08:42)
[2022-01-23 09:00] VITALS: BP 113/76; PULSE 88; RESP 14; TEMP 36.6; O2SAT 98
[2022-01-23] MEDS: Throat Lozenge, Medicated LOZENGE 1 LOZENGE MUCOUS MEM ×2 (09:05→18:53)
[2022-01-23 16:14] VITALS: BP 116/57; PULSE 83
--- NOTE | 2022-01-23 16:53 | HO.PSYCHPN ---
Subjective Subjective Date of Service: 01/23/22 Reason For Visit: Linda Subjective Notes: Conditional Voluntary and 3 Day Healthcare Proxy: No Guardianship: No Medical Problems Affecting Mental Status: No Interim History: Three day notice to 01/24. Remains hypomanic, poor sleep per team. Declines medication changes Declines retraction of three day notice. Discussed meeting with nina prior to discharge to discuss our concerns with him. Maybe . Medication Compliance: Yes Side effects from medications: No Attending Groups: Intermittent Review of Systems Acute medical concerns: No Medical Review of Systems: unchanged Mental Status Exam Mental Status Exam Patient Appearance: Appropriate Patient Orientation: Person, Place, Time and Situation Level of Consciousness: Alert Patient Behavior: Talkative and Good Eye Contact Mood Description: Happy Affect Description: Labile Patient Cognition Impaired: No Ability to Follow Directions: Good Speech Pattern: Spontaneous Speech Memory Description: Episodic Impaired Hallucinations: None (denies) Delusions: Not Present (denies) Thought Process: Distracted Thought Content: positive for Suicidal Ideation (denies) and positive for Homicidal Ideation (denies) Depressive Symptoms: Insomnia and Difficulty Sleeping Judgement: Fair Diagnostics Vital Signs (24Hr): Vital Signs - 24 hr 01/22/22 18:20 01/23/22 09:00 01/23/22 16:14 Temperature 98 F Pulse Rate 91 88 83 Respiratory Rate 14 Blood Pressure 132/84 113/76 116/57 L Pulse Oximetry 98 Oxygen Delivery Method Room Air BMI result Body Mass Index 31.8 Labs Results: 01/18/22 17:50 01/19/22 07:30 Labs: Laboratory Results - last 48 hr 01/21/22 23:31 COVID-19 (NASIR) Negative COVID-19 Clin Com See Note Medications Medications Current Medications Acetaminophen (Acetaminophen 325 Mg Tablet) 650 mg PO Q6H PRN PRN Reason: Headache/Pain Mild Scale (1-3) Al Hydroxide/Mg Hydroxide (Magnesium Hydrox/Alum Hydrox 30 Ml Oral.Susp) 30 ml PO Q6H PRN PRN Reason: Heartburn/Nausea Benzocaine (Benzocaine 20 % Oral Gel 9 Gm Tube) 1 appl MUCOUS MEM QID PRN; Protocol PRN Reason: tooth ache Last Admin: 01/21/22 19:57 Dose: 1 appl Benzocaine (Throat Lozenge, Medicated Lozenge) 1 lozenge MUCOUS MEM Q2H PRN PRN Reason: Sore Throat Last Admin: 01/23/22 09:05 Dose: 1 lozenge Diphenhydramine HCl (Diphenhydramine Hcl 25 Mg Capsule) 50 mg PO Q6H PRN PRN Reason: itchiness Last Admin: 01/20/22 20:14 Dose: 50 mg Divalproex Sodium (Divalproex Sodium Er 500 Mg Tab.Er.24h) 500 mg PO BEDTIME FERMIN Last Admin: 01/22/22 18:46 Dose: 500 mg Hydrocortisone (Hydrocortisone 1 % Ointment 28.35 Gm Tube) 1 appl TOPICAL BID FERMIN; Protocol Last Admin: 01/23/22 08:42 Dose: 1 appl Hydroxyzine HCl (Hydroxyzine Hcl 50 Mg Tablet) 50 mg PO TID PRN PRN Reason: Anxiety Lorazepam (Lorazepam 1 Mg Tablet) 2 mg PO Q4H PRN PRN Reason: agitation Magnesium Hydroxide (Milk Of Magnesia 30 Ml Oral.Susp) 30 ml PO DAILY PRN PRN Reason: Constipation Methimazole (Methimazole 10 Mg Tablet) 10 mg PO DAILY [facility] Last Admin: 01/23/22 08:41 Dose: 10 mg Naltrexone HCl (Naltrexone Hcl 50 Mg Tablet) 50 mg PO DAILY [facility] Last Admin: 01/23/22 08:42 Dose: 50 mg Nicotine Polacrilex (Nicotine Polacrilex 2 Mg Gum) 4 mg BUCCAL Q2H PRN PRN Reason: Nicotine Cravings Olanzapine (Olanzapine 5 Mg Tablet) 5 mg PO Q4H PRN PRN Reason: agitation Olanzapine (Olanzapine 7.5 Mg Tablet) 15 mg PO BEDTIME [facility] Last Admin: 01/22/22 18:50 Dose: Not Given Topiramate (Topiramate 25 Mg Tablet) 50 mg PO BID [facility] Last Admin: 01/23/22 08:42 Dose: 50 mg Allergies Allergies Allergy/AdvReac Type Severity Reaction Status Date / Time aloe Allergy Unknown Unknown Verified 01/19/22 01:22 Assessment & Plan Assessment & Plan (1) Acute psychosis: Status: Acute Code(s): F23 - Brief psychotic disorder (2) Bipolar 1 disorder: Status: Acute Code(s): F31.9 - Bipolar disorder, unspecified Plan The patient is a young descent female with a prior admission to the hospital for psychosis admitted for exacerbation of linda and psychotic symptoms in the context of noncompliance and probably changes in her medication. Plan 1. Gather collateral information. 2. Admit to M5. 3. Observation 15 minutes check. 4. Hold Zoloft and Wellbutrin and other antidepressants since the patient is grossly manic at this moment. 5. Continue with antipsychotics and p.r.n. medications. 6. Continue with medical assessment. 01/20/22 Increase Olanzapine to 15 mg HS Depakote ER 500 mg HS Increase Tapazole from 7.5 mg daily to 10 mg daily. Message left for endocrine Dr. Coker [facility] to discuss Pt has a rash-forearms, legs, hands-hydrocortisone ordered- monitor. 01/21: Continue current plan. Medications recently adjusted. ?: COVID test was negative. Restart albuterol and flonase. 01/23/22: TDN to 01/24. Declines further medication titration. I spent minutes with the patient and/or on the patient floor today, greater than?50% of which was spent counseling/coordinating care. Patient educated on: medication risk/benefits and therapeutic strategies Informed Consent: understands and further education needed Reason for contiued inpatient stay Substantial Risk for: rapid decompensation
[2022-01-23] MEDS: Divalproex Sodium ER 500 MG TAB.ER.24H PO (18:53)
[2022-01-23] MEDS: OLANZapine 7.5 MG TABLET 15 MG PO (18:53)
[2022-01-24 06:00] VITALS: BP 136/92; PULSE 98; RESP 18; TEMP 36.3; O2SAT 95
[2022-01-24] MEDS: Naltrexone HCl 50 MG TABLET PO (09:52)
[2022-01-24] MEDS: Topiramate 25 MG TABLET 50 MG PO (09:52)
[2022-01-24] MEDS: methIMAzole 10 MG TABLET PO (09:52)
[2022-01-24] MEDS: Hydrocortisone 1 % Ointment 28.35 GM TUBE 1 APPL TOPICAL (11:14)
[2022-01-24] MEDS: Benzocaine 20 % Oral Gel 9 GM TUBE 1 APPL MUCOUS MEM (16:08)
--- NOTE | 2022-01-24 16:54 | P.DS_ITS ---
DS: Providers Provider Date of Service: 01/24/22 Date of admission: 01/18/22 22:38 Date of discharge: 01/24/22 Primary care physician: EMORY Rosas Admitting clinician: Marco Antonio Salas Attending physician on admission: Marco Antonio Salas Attending physician on discharge: Marvin Joshi Discharging clinician: Tiffanie Benites DS: Diagnosis Discharge Diagnosis (1) Acute psychosis: Status: Resolved (2) Bipolar 1 disorder: Status: Acute DS: Medications Discharge Medications Home Medications: Home Medications Medication Instructions Recorded Confirmed hydroxyzine pamoate 50 mg capsule 50 mg PO TID PRN Anxiety 01/18/22 01/18/22 methimazole 1.5 tab PO DAILY 01/18/22 01/18/22 naltrexone 50 mg tablet 50 mg PO DAILY 01/18/22 01/18/22 topiramate 50 mg tablet 50 mg PO BID 01/18/22 01/18/22 Previous Rx's Medication Instructions Recorded diphenhydramine HCl 25 mg capsule 50 mg PO Q6H PRN itchiness #10 caps 01/24/22 divalproex 500 mg tablet,extended 500 mg PO BEDTIME #14 tabs 01/24/22 release 24 hr hydrocortisone 1 % topical ointment 1 appl topical BID #1 applicator 01/24/22 olanzapine 20 mg tablet 20 mg PO BEDTIME #30 tabs 01/24/22 Mental Status Exam Mental Status Exam Patient Appearance: Appropriate Patient Orientation: Person, Place, Time and Situation Level of Consciousness: Alert Patient Behavior: Talkative and Good Eye Contact Mood Description: Happy Affect Description: Labile Patient Cognition Impaired: No Ability to Follow Directions: Good Speech Pattern: Spontaneous Speech Memory Description: Episodic Impaired Hallucinations: None (denies) Delusions: Not Present (denies) Thought Process: Distracted Thought Content: positive for Suicidal Ideation (denies) and positive for Homicidal Ideation (denies) Depressive Symptoms: Insomnia and Difficulty Sleeping Judgement: Fair Data Data Completed and Pending Completed studies during hospitalization [Text1]: 01/18/22 01/18/22 01/18/22 17:45 17:46 17:46 WBC RBC Hgb Hct MCV MCH MCHC RDW Plt Count MPV Immature Gran % (Auto) Neut % (Auto) Lymph % (Auto) Charles % (Auto) Eos % (Auto) Baso % (Auto) Lymph # (Auto) Charles # (Auto) Eos # (Auto) Baso # (Auto) Abs Immat Gran (auto) Absolute Neuts (auto) Absolute Nucleated RBC Nucleated RBC % (auto) Sodium Potassium Chloride Carbon Dioxide Anion Gap BUN Creatinine Estim Creat Clear Calc Estimated GFR Random Glucose Fasting Glucose Estimat Average Glucose Hemoglobin A1c % Calcium Magnesium Total Bilirubin AST ALT Alkaline Phosphatase Total Protein Albumin Triglycerides Cholesterol LDL Cholesterol, Calc HDL Cholesterol TSH Free T4 Urine Color Yellow Urine Appearance Cloudy Urine pH 7.5 Ur Specific [place] 1.015 Urine Protein Negative Urine Glucose (UA) Negative Urine Ketones Negative Urine Blood Negative Urine Nitrite Negative Ur Leukocyte Esterase Trace H Urine RBC 0-2 Urine WBC 0-5 Ur Squamous Epith Cells 3-5 Urine Bacteria Trace Hyaline Casts 0-2 Salicylates Urine Opiates Screen Not Detected Urine Fentanyl Screen Not Detected Acetaminophen Ur Barbiturates Screen Not Detected Ur Phencyclidine Scrn Not Detected Ur Amphetamines Screen Not Detected U Benzodiazepines Scrn Not Detected Urine Cocaine Screen Not Detected U Marijuana (THC) Screen Not Detected Ethyl Alcohol COVID-19 (NASIR) Negative COVID-19 Clin Com See Note 01/18/22 01/18/22 01/18/22 17:50 17:50 17:50 WBC 11.3 H RBC 5.14 Hgb 14.2 Hct 42.8 MCV 83.3 MCH 27.6 MCHC 33.2 RDW 13.7 Plt Count 347 MPV 10.4 Immature Gran % (Auto) 0.9 H Neut % (Auto) 69.0 Lymph % (Auto) 24.0 Charles % (Auto) 5.6 Eos % (Auto) 0.1 Baso % (Auto) 0.4 Lymph # (Auto) 2.7 Charles # (Auto) 0.6 Eos # (Auto) 0.0 Baso # (Auto) 0.1 Abs Immat Gran (auto) 0.10 H Absolute Neuts (auto) 7.8 Absolute Nucleated RBC 0.000 Nucleated RBC % (auto) 0.0 Sodium 138 Potassium 3.8 Chloride 108 Carbon Dioxide 20 L Anion Gap 14 BUN 10 Creatinine 0.75 Estim Creat Clear Calc 96.2 Estimated GFR > 60 Random Glucose 72 Fasting Glucose Estimat Average Glucose Hemoglobin A1c % Calcium 9.7 Magnesium 2.1 Total Bilirubin 0.3 AST 16 ALT 13 Alkaline Phosphatase 115 Total Protein 8.4 H Albumin 4.6 Triglycerides Cholesterol LDL Cholesterol, Calc HDL Cholesterol TSH 6.80 H Free T4 Urine Color Urine Appearance Urine pH Ur Specific [place] Urine Protein Urine Glucose (UA) Urine Ketones Urine Blood Urine Nitrite Ur Leukocyte Esterase Urine RBC Urine WBC Ur Squamous Epith Cells Urine Bacteria Hyaline Casts Salicylates < 5.0 L Urine Opiates Screen Urine Fentanyl Screen Acetaminophen < 1 Ur Barbiturates Screen Ur Phencyclidine Scrn Ur Amphetamines Screen U Benzodiazepines Scrn Urine Cocaine Screen U Marijuana (THC) Screen Ethyl Alcohol < 10 COVID-19 (NASIR) COVID-19 Clin Com 01/19/22 01/19/22 01/21/22 07:30 07:30 23:31 WBC RBC Hgb Hct MCV MCH MCHC RDW Plt Count MPV Immature Gran % (Auto) Neut % (Auto) Lymph % (Auto) Charles % (Auto) Eos % (Auto) Baso % (Auto) Lymph # (Auto) Charles # (Auto) Eos # (Auto) Baso # (Auto) Abs Immat Gran (auto) Absolute Neuts (auto) Absolute Nucleated RBC Nucleated RBC % (auto) Sodium 140 Potassium 4.4 Chloride 111 H Carbon Dioxide 20 L Anion Gap 13 BUN 12 Creatinine 0.87 Estim Creat Clear Calc 83.0 Estimated GFR > 60 Random Glucose Fasting Glucose 89 Estimat Average Glucose 100 Hemoglobin A1c % 5.1 Calcium 9.2 Magnesium Total Bilirubin 0.4 AST 13 ALT 15 Alkaline Phosphatase 104 Total Protein 7.5 Albumin 4.0 Triglycerides 131 Cholesterol 134 LDL Cholesterol, Calc 69 HDL Cholesterol 39 TSH Free T4 0.89 Urine Color Urine Appearance Urine pH Ur Specific [place] Urine Protein Urine Glucose (UA) Urine Ketones Urine Blood Urine Nitrite Ur Leukocyte Esterase Urine RBC Urine WBC Ur Squamous Epith Cells Urine Bacteria Hyaline Casts Salicylates Urine Opiates Screen Urine Fentanyl Screen Acetaminophen Ur Barbiturates Screen Ur Phencyclidine Scrn Ur Amphetamines Screen U Benzodiazepines Scrn Urine Cocaine Screen U Marijuana (THC) Screen Ethyl Alcohol COVID-19 (NASIR) Negative COVID-19 Clin Com See Note DS: Summary Hospital Course Hospital Course: Admission to adult psychiatry for exacerbation of symptoms of bipolar disorder. Olanzapine and Valproate were initiated. Wellbutrin and Sertraline were discontinued. Topiramate and Naltrexone were continued. Pt signed out on a three day notice. She was encouraged to remain in patient for enhanced treatment to focus on improving mood and sleep, however she declined and did not meet commitment criteria. Family encouraged her to remain, however, she refused. Time spent discussing smoking cessation with patient: 3 to 10 minutes Status at Discharge Functional status at discharge: independent ambulation Overall status at discharge: patient is progressing back to baseline Time Spent with Patient Time attestation: Total time spent providing and/or coordinating discharge services: 40 Time spent: Greater than 30 minutes Discharge Plan Discharge Anticipated Discharge Date/Time: 01/24/22 17:57 Patient Disposition: Home, Self-Care Discharge Diagnosis: Bipolar Disorder, Type I Referrals: Clinical and Support Options (TURNTABLE OPERATOR): Chandana Gallegos [Other] - 01/26/22 2:30 pm (Follow-up appointment with outpatient medication provider) Jim Jackson PA [Primary Care Provider] - 01/30/22 10:00 am (in office) Discharge Medications: New hydrocortisone 1 % Ointment 1 appl topical BID Qty: 1 0RF Protocol: Apply to: Apply to: face and bilar forearm diphenhydramine HCl 25 mg Capsule 50 mg PO Q6H PRN (Reason: itchiness) Qty: 10 0RF divalproex 500 mg Tablet Extended Release 24 Hr 500 mg PO BEDTIME Qty: 14 1RF olanzapine 20 mg tablet 20 mg PO BEDTIME Qty: 30 0RF Continued naltrexone 50 mg Tablet 50 mg PO DAILY hydroxyzine pamoate 50 mg Capsule 50 mg PO TID PRN (Reason: Anxiety) topiramate 50 mg Tablet 50 mg PO BID methimazole 5 mg 1.5 tab PO DAILY Discontinued bupropion HCl [Wellbutrin] 75 mg Tablet 75 mg PO BID sertraline 50 mg Tablet 50 mg PO DAILY Discharge Orders: Discharge Order (Routine); Ordered 01/24/22 Ordered By: Tiffanie Benites Diet: Advance to usual diet Activity on Discharge: As tolerated Stand Alone Forms: Patient Portal Discharge page, Community Support Care Plan Goals: Maintain mood and safe behaviors Take medications as directed Practice coping skills Continue with out patient providers. Call and or return as needed Health Concerns: Stable mood and behaviors Plan of Treatment: Follow up with out patient providers Take medications as directed Call and or return as needed. Assessment: Lyndsey has chosen to discharge on a three day notice which expires today. We believe she should remain in patient for ongoing treatment, however, she refuses. We identified mood and sleep issues that need continued work, however, she declines this offer. Her aunt visited this morning and encouraged Lyndsey to remain in the hospital, but she refused. We reviewed criteria for commitment-Lyndsey does not meet these criteria. She declines to remain as a voluntary patient. The team has attempted to contact her fiance today for a meeting, however, he has not answered when we have called. Lyndsey is fully oriented and without SI/HI. She demonstrates insight in wanting to pursue treatment on an out patient basis She is not in imminent risk of harm to self or others and has a safety plan that includes calling crisis and or returning to the ER for evaluation for admission as well as calling 911 if she is feeling unsafe. She has not engaged in any behaviors that suggest dangerousness to self or others and has demonstrated appropriate behaviors and impulse control. She agrees to continue with her medications and will call as needed with questions or concerns. She is aware she may return for evaluation for admission at any time. Discharge Date/Time: 01/24/22 17:00
== END 2022-01-24 17:00 | disposition home or self-care (01) | DRG 753 ==
LOC: HO.ED 18:56 → HO.PM5 01-19 00:33
PROVIDERS: Physician Assistant; Psychiatry & Neurology Psychiatry; Admitting Provider Psychiatry & Neurology Psychiatry; Emergency Provider Student in an Organized Health Care Education/Training Program; PCP Physician Assistant; Visit Provider Clinical Nurse Specialist Psychiatric/Mental Health, Adult
DX: F31.9 Bipolar disorder, unspecified (principal); Z91.14 Patient's other noncompliance with medication regimen; F23 Brief psychotic disorder; Z20.822 Contact with and (suspected) exposure to COVID-19; Z79.899 Other long term (current) drug therapy
CPT/HCPCS: 36415; 80053; 80061; 80143; 80179; 80307; 81001; 82077; 83036; 83735; 84439; 84443; 85025; 87635; 99285